=== PATIENT | female | born 1955 | race American Indian/Alaskan Native ===

== ENCOUNTER 2016-12-17 11:03 | Outpatient (CLI) | payer BC ==
--- NOTE | 2016-12-20 10:51 | Mammography Report ---
BILATERAL DIGITAL SCREENING MAMMOGRAM with CAD: 12/17/16 11:03:00 CLINICAL: Routine screening. COMPARISON:11/17/15 and 07/22/14 mammograms from [facility], [place], [place] and 09/13/11 [facility] mammogram. FINDINGS: There are bilateral scattered areas of fibroglandular density. No mass, architectural distortion or suspicious calcifications. IMPRESSION: No mammographic evidence of malignancy. BI-RADS CATEGORY: 2 -- Benign RECOMMENDATION: Routine mammographic screening in one year. COMMENT: Patient follow-up letters are generated by our [employer] application.
== END 2016-12-17 11:04 | disposition home or self-care (01) ==
LOC: MAMMO 11:03
PROVIDERS: ATTEND Surgery
DX: Z12.31 Encounter for screening mammogram for malignant neoplasm of breast (principal)
CPT/HCPCS: 77067; G0202

== ENCOUNTER 2016-12-21 07:51 | Outpatient (CLI) | payer BC ==
[2016-12-21] MEDS ORDERED: LEXISCAN IV ONE ×2 (08:48→10:00)
[2016-12-21 10:17] VITALS: BP 145/80
--- NOTE | 2016-12-21 11:21 | Procedure Note ---
Date of procedure: 12/21/16 Procedure: 1. Normal nuclear stress perfusion scan without evidence of active ischemia or prior infarct. 2. Normal left ventricular systolic performance without evidence of TID or stress-induced segmental wall motion abnormalities.
== END 2016-12-21 07:52 | disposition home or self-care (01) ==
LOC: CARD 07:51
PROVIDERS: ATTEND Internal Medicine
DX: R94.31 Abnormal electrocardiogram [ECG] [EKG] (principal)
CPT/HCPCS: 78452; 93017; A9502; J2785

== ENCOUNTER 2017-01-13 13:05 | Outpatient (CLI) | payer BC ==
[2017-01-13 13:27] LABS: Hematocrit 34.2 % (30.3-42.9); Hemoglobin 11.5 gm/dl (10.1-14.3); Mean Corpuscular HGB Conc 34 % (30-34); Mean Corpuscular Hemoglobin 29 pg (28-32); Mean Corpuscular Volume 85 fl (79-97); Platelet Count 256 K/mm3 (140-440); Red Blood Count 4.02 M/mm3 (3.65-5.03); Red Cell Distribution Width 14.3 % (13.2-15.2); White Blood Count 3.6 K/mm3 (4.5-11.0)
[2017-01-13 13:56] LABS: HIV-1 Antigen p24 Non React (Non React); HIVR-1/2 Ab Non React (Non React)
[2017-01-13 14:10] LABS: Anisocytosis 1+; Basophils % (Manual) 0 % (0.0-1.8); Blastocytes % (Manual) 0 %; Ovalocytes 2+; Poikilocytosis 1+
[2017-01-13 14:11] LABS: Diff Status Complete; Elliptocytes 1+; Helmet Cells Rare; Tear Drop Cells Rare
== END 2017-01-13 13:06 | disposition home or self-care (01) ==
LOC: LAB 13:05
PROVIDERS: ATTEND Internal Medicine
DX: D70.8 Other neutropenia (principal)
CPT/HCPCS: 36415; 82607; 82747; 85007; 85025; 87806

== ENCOUNTER 2017-04-08 11:16 | Outpatient (CLI) | payer BC ==
[2017-04-08 11:58] LABS: Alanine Aminotransferase 10 units/L (7-56); Albumin/Globulin Ratio 0.9 %; Alkaline Phosphatase 74 units/L (35-129); Anion Gap 15 mmol/L; BUN/Creatinine Ratio 17; Blood Urea Nitrogen 10 mg/dL (7-17); Calcium 8.7 mg/dL (8.4-10.2); Carbon Dioxide 29 mmol/L (22-30); Chloride 100.7 mmol/L (98-107); Cholesterol 176 mg/dL (50-199); Glucose 89 mg/dL (65-100); HDL Cholesterol 81 mg/dL (40-59); LDL Cholesterol,Direct 86 mg/dL (50-130); Potassium 3.7 mmol/L (3.6-5.0); Sodium 141 mmol/L (137-145); Total Protein 8.3 g/dL (6.3-8.2); Triglycerides 47 mg/dL (2-149)
[2017-04-11 22:23] LABS: Vitamin D, 25-OH, Total 11 ng/mL (30-100)
== END 2017-04-08 11:17 | disposition home or self-care (01) ==
LOC: LAB 11:16
PROVIDERS: ATTEND Internal Medicine
DX: E78.2 Mixed hyperlipidemia (principal); E05.90 Thyrotoxicosis, unspecified without thyrotoxic crisis or storm; E53.8 Deficiency of other specified B group vitamins; E55.9 Vitamin D deficiency, unspecified
CPT/HCPCS: 36415; 80053; 80061; 82306; 82607; 84436; 84443

== ENCOUNTER 2017-04-08 14:13 | Outpatient (CLI) | payer BC ==
--- NOTE | 2017-04-08 16:08 | Mammography Report ---
BONE DENSITY STUDY: Menopausal osteoporosis. DEFINITIONS: BMD = Bone Mineral Density T-score = BMD related to mean peak bone mass of young adult (mean expressed in Standard Deviation) Z-score = Age matched BMD expressed in SD World Health Organization (WHO) Diagnostic Criteria Normal T-score > -1 SD Osteopenia T-score between -1 and -2.4 SD Osteoporosis T-score -2.5 SD or below FINDINGS: The weighted average BMD of lumbar spine L1-L3 is 0.804 with a T-score of -1.9. The weighted average BMD of the left hip is 0.836 with a T-score of -0.9. IMPRESSION: The patient's average T-score is diagnostic for osteopenia and average relative risk for fracture. NOTE: BMD is not the only risk factor for fracture; also consider factors such as the patient's age, risk of falling, previous osteoporotic fracture, family history of osteoporotic fractures, current smoker, and low body weight. Quach's triangle is a region of interest in femur, predominantly of trabecular bone. It is not a true anatomic site, and ISCD does not recommend its use clinically.
== END 2017-04-08 14:14 | disposition home or self-care (01) ==
LOC: MAMMO 14:13
PROVIDERS: ATTEND Internal Medicine
DX: M85.88 Other specified disorders of bone density and structure, other site (principal); Z78.0 Asymptomatic menopausal state
CPT/HCPCS: 77080

== ENCOUNTER 2018-08-22 14:34 | Outpatient (CLI) | payer BC ==
[2018-08-22 15:05] LABS: Hemoglobin 11.2 gm/dl (10.1-14.3); Mean Corpuscular HGB Conc 35 % (30-34); Mean Corpuscular Volume 85 fl (79-97); Platelet Count 257 K/mm3 (140-440); Red Blood Count 3.76 M/mm3 (3.65-5.03); Red Cell Distribution Width 13.4 % (13.2-15.2)
[2018-08-22 15:08] LABS: Bilirubin,Urine NEG (Negative); Blood,Urine NEG (Negative); Color,Urine Amber (Yellow); Mucus,Urine 2+ /HPF
[2018-08-22 15:33] LABS: Alanine Aminotransferase 11 units/L (7-56); Albumin 3.9 g/dL (3.9-5); BUN/Creatinine Ratio 11; Blood Urea Nitrogen 8 mg/dL (7-17); Calcium 8.6 mg/dL (8.4-10.2); Hemolysis Index 4
[2018-08-29 12:50] LABS: ANA Screen, IFA Positive (Negative)
== END 2018-08-22 14:35 | disposition home or self-care (01) ==
LOC: LAB 14:34
PROVIDERS: ATTEND Internal Medicine Rheumatology
DX: M32.9 Systemic lupus erythematosus, unspecified (principal); M19.90 Unspecified osteoarthritis, unspecified site; Z90.710 Acquired absence of both cervix and uterus
CPT/HCPCS: 36415; 80053; 81001; 85027; 86038; 86225; 86235

== ENCOUNTER 2018-09-11 11:05 | Outpatient (CLI) | payer BC | END 2018-09-11 11:06 | disposition home or self-care (01) | LOC: LAB 11:05 | PROVIDERS: ATTEND Internal Medicine | DX: E87.6 Hypokalemia (principal); M19.90 Unspecified osteoarthritis, unspecified site; Z90.710 Acquired absence of both cervix and uterus | CPT/HCPCS: 36415; 82088; 84132 ==

== ENCOUNTER 2019-12-26 08:52 | Outpatient (CLI) | payer BC | END 2019-12-26 08:53 | disposition home or self-care (01) | LOC: LAB 08:52 | PROVIDERS: ATTEND Internal Medicine Rheumatology | DX: E78.2 Mixed hyperlipidemia (principal); M06.4 Inflammatory polyarthropathy | CPT/HCPCS: 36415; 84550; 86038; 86147; 86225; 86431 ==

== ENCOUNTER 2020-02-22 09:24 | Outpatient (CLI) | payer BC ==
[2020-02-22 13:48] LABS: Basophils % (Auto) 0.5 % (0.0-1.8); Eosinophils # (Auto) 0.2 K/mm3 (0.0-0.4); Eosinophils % (Auto) 3.5 % (0.0-4.3); Hematocrit 34.5 % (30.3-42.9); Hemoglobin 11.6 gm/dl (10.1-14.3); Lymphocytes # (Auto) 1.7 K/mm3 (1.2-5.4); Lymphocytes % (Auto) 36.8 % (13.4-35.0); Mean Corpuscular HGB Conc 34 % (30-34); Mean Corpuscular Volume 88 fl (79-97); Monocytes # (Auto) 0.4 K/mm3 (0.0-0.8); Monocytes % (Auto) 8.5 % (0.0-7.3); Platelet Count 245 K/mm3 (140-440); Red Blood Count 3.91 M/mm3 (3.65-5.03); Red Cell Distribution Width 13.6 % (13.2-15.2)
== END 2020-02-22 09:25 | disposition home or self-care (01) ==
LOC: LAB 09:24
PROVIDERS: ATTEND Internal Medicine Rheumatology
DX: D72.819 Decreased white blood cell count, unspecified (principal)
CPT/HCPCS: 36415; 85025

== ENCOUNTER 2020-08-29 09:26 | Outpatient (CLI) | payer BC ==
--- NOTE | 2020-08-29 11:33 | Ultrasound Report ---
ULTRASOUND BREAST RIGHT LIMITED, 08/29/2020 CLINICAL INFORMATION / INDICATION: ABNORMAL MAMMOGRAM. Patient presents for six-month follow-up of a probably benign oval circumscribed mass in the right breast. TECHNIQUE: Targeted ultrasound evaluation was performed of the area of interest. COMPARISON: Prior mammogram 12/20/2019 and right breast ultrasound 01/30/2020 FINDINGS: There is a stable superficial oval circumscribed hypoechoic mass in the right breast 11:00 position l ocated 1 cm from the nipple, currently measuring up to 2.8 x 0.7 x 2.6 cm, previously 2.8 x 0.5 x 2.5 cm. IMPRESSION: 1. A superficial oval circumscribed hypoechoic mass in the right breast is stable from prior examinat ion and remains probably benign. Recommend right breast ultrasound in 6 months to ensure ongoing stab ility, at which time patient will be due for bilateral mammogram. Follow up recommendation: Short term follow up in 6 months. BI-RADS Category 3: Probably Benign. Followup in 6 months. A normal or "negative" report should not preclude biopsy or follow-up of a clinically suspicious find ing. Signer Name: Jamaica Craig MD Signed: 08/29/2020 11:29 AM Workstation Name: [id number]
== END 2020-08-29 09:27 | disposition home or self-care (01) ==
LOC: US 09:26
PROVIDERS: ATTEND Surgery
DX: N63.11 Unspecified lump in the right breast, upper outer quadrant (principal); N60.32 Fibrosclerosis of left breast; N60.31 Fibrosclerosis of right breast

== ENCOUNTER 2020-09-02 11:35 | Outpatient (CLI) | payer BC ==
[2020-09-02 12:43] LABS: Alanine Aminotransferase 9 units/L (7-56); Albumin 3.9 g/dL (3.9-5); Blood Urea Nitrogen 13 mg/dL (7-17); Hemolysis Index 20
[2020-09-02 12:51] LABS: BUN/Creatinine Ratio 19
[2020-09-02 12:53] LABS: Eosinophils # (Auto) 0.1 K/mm3 (0.0-0.4); Eosinophils % (Auto) 2.5 % (0.0-4.3); Hematocrit 32.8 % (30.3-42.9); Lymphocytes # (Auto) 1.5 K/mm3 (1.2-5.4); Lymphocytes % (Auto) 38.1 % (13.4-35.0); Mean Corpuscular HGB Conc 34 % (30-34); Mean Corpuscular Volume 86 fl (79-97); Monocytes # (Auto) 0.3 K/mm3 (0.0-0.8); Monocytes % (Auto) 7.9 % (0.0-7.3); Platelet Count 224 K/mm3 (140-440); Red Blood Count 3.81 M/mm3 (3.65-5.03); Red Cell Distribution Width 13.8 % (13.2-15.2)
[2020-09-04 22:33] LABS: Cardiolipin Ab IgA 12 APL (<=11); Cardiolipin Ab IgG 46 GPL (<=14); Cardiolipin Ab IgM <12 MPL (<=12)
== END 2020-09-02 11:36 | disposition home or self-care (01) ==
LOC: LAB 11:35
PROVIDERS: ATTEND Internal Medicine
DX: M32.9 Systemic lupus erythematosus, unspecified (principal); E87.6 Hypokalemia
CPT/HCPCS: 36415; 80053; 82306; 82607; 85025; 86038; 86140; 86147; 86160; 86225

== ENCOUNTER 2020-09-25 09:11 | Outpatient (CLI) | payer BC ==
--- NOTE | 2020-09-25 11:18 | Treadmill Report ---
ORDERING PHYSICIAN: Dr. Avelino Barragan. The patient's for fatigue and dizziness. The patient's baseline EKG is sinus rhythm with nonspecific ST-T. Baseline blood pressure is 128/69. Baseline heart rate is 67. The patient exercised on Jarrod protocol for 9 minutes 45 seconds. Max heart rate is 169, which is 95% max predicted heart rate. Peak blood pressure is 169/82. There were no EKG changes or arrhythmia suggestive of ischemia, stopped secondary to shortness of breath. SUMMARY: 1. Negative treadmill EKG. 2. Good exercise capacity 9 minutes 45 seconds of Jarrod protocol. 3. There were no EKG changes or arrhythmia suggestive of ischemia with good or exaggerated blood pressure response to activity. JOB# [id number] DINH/VAN
== END 2020-09-25 09:12 | disposition home or self-care (01) ==
LOC: CARD 09:11
PROVIDERS: ATTEND Specialist
DX: R07.89 Other chest pain (principal)
CPT/HCPCS: 93017

== ENCOUNTER 2020-10-06 16:33 | Outpatient (CLI) | payer BC ==
--- NOTE | 2020-10-06 17:30 | Cat Scan Report ---
CT head/brain wo con INDICATION: DIZZINESS AND GIDDINESS. TECHNIQUE: Routine CT head. All CT scans at this location are performed using CT dose reduction for A TALAT by means of automated exposure control. COMPARISON: None. FINDINGS: Intracranial: Mayers-white matter differentiation is maintained. No intracranial hemorrhage. No extra a xial collection. No hydrocephalus. No herniation. Sinuses: Paranasal sinuses and mastoid air cells are essentially clear. Orbits: Globes are intact. Calvarium: Lucency of the clivus is seen. However, there is preservation of the trabeculation and zain s findings could be related to osseous demineralization. No cortical breakthrough is visualized. No a cute fracture. IMPRESSION: 1. No acute intracranial abnormality. Signer Name: Michael Mane MD Signed: 10/06/2020 5:26 PM Workstation Name: [id number]
== END 2020-10-06 16:34 | disposition home or self-care (01) ==
LOC: CT 16:33
PROVIDERS: ATTEND Internal Medicine
DX: R42 Dizziness and giddiness (principal)
CPT/HCPCS: 70450

== ENCOUNTER 2020-10-09 13:56 | Outpatient (CLI) | payer BC ==
--- NOTE | 2020-10-09 16:14 | Vascular Lab Report ---
DUPLEX DOPPLER ULTRASOUND CAROTID, BILATERAL INDICATION / CLINICAL INFORMATION: SUDDEN VISUAL LOSS, UNSPECIFIED EYE. Sudden visual loss in left ey e since 5 days ago, history of lupus. COMPARISON: None available. FINDINGS: RIGHT CAROTID: Minimal atherosclerotic disease in right bulb and proximal ICA. - PLAQUE ESTIMATE (%): < 50% - CCA velocity: 96 cm/sec. - ICA peak systolic velocity: 76 cm/sec. - ICA/CCA PSV Ratio: 0.8 Right Vertebral Artery: Antegrade flow. LEFT CAROTID: Minimal atherosclerotic disease in left bulb and proximal ICA. Tortuous ICA. - PLAQUE ESTIMATE (%): < 50% - CCA velocity: 84 cm/sec. - ICA peak systolic velocity: 105 cm/sec. - ICA/CCA PSV Ratio: 1.3 Left Vertebral Artery: Antegrade flow. IMPRESSION: 1. Right Internal Carotid Artery: Less than 50% diameter stenosis. 2. Left Internal Carotid Artery: Less than 50% diameter stenosis. 3. Minimal atherosclerotic disease bilateral, as above. Velocity criteria are extrapolated from diameter data as defined by the Society of Radiologists in [facility] Consensus Conference, Radiology 2003; 229;340-346. NO STENOSIS (NORMAL) - Plaque = none; ICA PSV < 125 cm/sec; ICA/CCA PSV Ratio < 2.0 <50% STENOSIS - Plaque < 50%; ICA PSV < 125 cm/sec; ICA/CCA PSV Ratio < 2.0 50-69% STENOSIS - Plaque > 50%; ICA PSV = 125-230 cm/sec; ICA/CCA PSV Ratio = 2.0-4.0 >70% BUT <100% STENOSIS - Plaque > 50%; ICA PSV > 230 cm/sec; ICA/CCA PSV Ratio > 4.0 NEAR OCCLUSION - Plaque = visible lumen; ICA PSV = high/low/none; ICA/CCA PSV Ratio = variable TOTAL OCCLUSION - Plaque = no lumen; ICA PSV = none; ICA/CCA PSV Ratio = N/A Scribed by: Sintia Bradley RDMS, RVT Scribed: 10/09/2020 2:07 PM Signer Name: Adam rPice MD Signed: 10/09/2020 4:09 PM Workstation Name: [email or web address] [id number]
== END 2020-10-09 13:57 | disposition home or self-care (01) ==
LOC: VAS 13:56
PROVIDERS: ATTEND Internal Medicine
DX: I65.23 Occlusion and stenosis of bilateral carotid arteries (principal); H53.139 Sudden visual loss, unspecified eye
CPT/HCPCS: 93880

== ENCOUNTER 2020-12-23 08:30 | Outpatient (CLI) | payer BC ==
--- NOTE | 2020-12-24 15:38 | Mammography Report ---
DIGITAL SCREENING MAMMOGRAM WITH CAD, 12/23/2020 CLINICAL INFORMATION / INDICATION: Routine screening mammography. -screening TECHNIQUE: Digital bilateral 2D mammography was obtained in the craniocaudal and mediolateral obliqu e projections. This examination was interpreted with the benefit of Computer-Aided Detection analysis . COMPARISON: 12/20/2019 FINDINGS: Breast Density: There are scattered areas of fibroglandular density. No dominant mass, suspicious calcifications, or architectural distortion in either breast. Old scar in the left breast. A few tiny scattered nodular densities are largely unchanged. Old biopsy clip on the left. IMPRESSION: No mammographic evidence of malignancy. Follow up recommendation: Routine yearly BI-RADS Category 2: Benign. A "normal" or negative report should not discourage follow up or biopsy of a clinically significant f inding. A written summary of these findings will be mailed to the patient. The patient will be entered into a mammography reporting system which will generate a reminder letter for the patient's next appointmen t at the appropriate interval. The [employer] recommends yearly mammograms starting at age 40 and continuing as l cristóbal as a woman is in good health. Breast MRI is recommended for women with an approximate 20-25% or greater lifetime risk of breast cancer, including women with a strong family history of breast or ova mayelin cancer or who have been treated for Hodgkin's disease. Signer Name: Red Sheppard MD Signed: 12/24/2020 3:33 PM Workstation Name: [id number]
== END 2020-12-23 08:31 | disposition home or self-care (01) ==
LOC: SPVWC 08:30
PROVIDERS: ATTEND Surgery
DX: Z12.31 Encounter for screening mammogram for malignant neoplasm of breast (principal)
CPT/HCPCS: 77063; 77067

== ENCOUNTER 2021-01-16 11:13 | Observation (INO) | payer BC ==
--- NOTE | 2021-01-16 11:55 | Event Note ---
ED Screening Note ED Screening Note: Patient presents for dizziness that occurred just prior to arrival She had associated nausea She states that she was having vision changes in her left eye and right arm weakness which have improved Patient states that the symptoms have been ongoing for 3 months but acutely worsened today she states her symptoms lasted longer than the previously have in the past She reports that she had recent carotid Dopplers bilaterally and states that her doctor believes she may be having TIAs Patient was scheduled for an MRI and MRA today but due to her symptoms she was unable to make it to her scan Discussed case with Dr. Thakur, ER attending who advised to initiate code stroke protocol This initial assessment/diagnostic orders/clinical plan/treatment(s) is/are subject to change based on patients health status, clinical progression and re- assessment by fellow clinical providers in the ED. Further treatment and workup at subsequent clinical providers discretion. Patient/guardian urged not to elope from the ED as their condition may be serious if not clinically assessed and managed. Initial orders include: code stroke initiated
--- NOTE | 2021-01-16 12:09 | Consultation ---
History of Present Illness Consult date: 01/16/21 Medications and Allergies Allergies Allergy/AdvReac Type Severity Reaction Status Date / Time Sulfa (Sulfonamide Allergy Rash Verified 03/10/13 13:46 Antibiotics) Home Medications Medication Instructions Recorded Confirmed Last Taken Type Ondansetron [Zofran] 4 mg PO Q8HR PRN #10 tablet 03/10/13 Unknown Rx Oxycodone HCl/Acetaminophen 1 each PO Q6HR PRN #30 tablet 03/10/13 Unknown Rx [Percocet 10-325 mg] Physical Examination - Vital Signs Vital Signs: Vital Signs Temp Pulse Resp BP Pulse Ox 98.2 F 68 18 146/77 100 01/16/21 11:55 01/16/21 11:55 01/16/21 11:55 01/16/21 11:55 01/16/21 11:55 Assessment and Plan [facility] Consult Note # Demographics Consult Type: Acute Stroke Level 1 (0-4.5 hrs) Patient Location: Emergency Room First Name: Lora Last Name: Vincent Date of : 1955 Age: 65 Gender: Female Time of Initial Page ( Time): 01/16/2021, 11:55 Time of Return Call ( Time): 01/16/2021, 11:57 # HPI History: 65F reportedly with episodes similar to this for months. Left eye vision loss and right side sensory change are the symptoms. Also nausea. Usually passes with time, but this episode longer duration, nearly back to normal now. Found to be hypoglycemic. # Scores Time of exam and NIHSS (): 01/16/2021, 12:00 Motor Leg Left 6a: [1] = Drift NIHSS Total: 1 # Data Glucose: hypoglycemia [address] personally read by me ( Time): 01/16/2021, 11:[address]: no bleed preliminarily reviewed by me, please refer to radiology read for official reading # Assessment Impression: Ischemic Stroke (Acute) versus mimic, including symptomatic hypoglycemia, complex migraine, other. Given that the patient has had many similar events with spontaneous resolution, and symptoms are minor, risk > benefit for IV tPA with available data as best I can estimate. # Plan Thrombolytic/Intervention: NOT IV Thrombolysis or IA Intervention candidate Thrombolytic Exclusion: risk > benefit with available data. Intraarterial Exclusion: pending CTA head/neck Target Blood Pressure: SBP < 220 Imaging: (urgency: STAT): CT Angiogram Head and CT Angiogram Neck Imaging: (urgency: routine): MRI Brain without contrast Diagnostic Test: echo with bubble study Medication: aspirin 81 mg PLUS clopidogrel (Plavix) 75 mg for 21 days, then monotherapy therafter start statin with goal of LDL < 70 Other: LDL < 70 permissive hypertension telemetry monitoring I have discussed my recommendations with the referring provider Additional Recommendations: Correction of hypoglycemia. Evaluation for etiology of hypoglycemia. Further recommendations depending on result of pending imaging. Disposition: admit # Logistics Telemedicine: Interactive 2 way audio and visual telecommunication technology was utilized during this visit
--- NOTE | 2021-01-16 12:52 | Cat Scan Report ---
CT HEAD WITHOUT CONTRAST INDICATION / CLINICAL INFORMATION: Stroke symptoms. TECHNIQUE: All CT scans at this location are performed using CT dose reduction for ALARA by means of automated exposure control. COMPARISON: CT from 10/06/2020. FINDINGS: BRAIN PARENCHYMA: No acute intracranial hemorrhage. No evidence of recent infarct. No mass effect or midline shift. VENTRICULAR SYSTEM/EXTRA-AXIAL SPACES: Ventricles are normal for age. No extra-axial fluid collection . ORBITS: Normal as visualized. SKELETAL SYSTEM/SOFT TISSUES: Normal bones and soft tissues. PARANASAL SINUSES/MASTOID AIR CELLS: There is stable lucency within the clivus. No new or increasing cortical destruction. This could be related to demineralization. No acute osseous findings. ADDITIONAL FINDINGS: None. IMPRESSION: 1. No acute intracranial findings. 2. Stable lucency within the clivus without new or increasing cortical destruction. Findings are favo red to be related to demineralization. Information regarding the critical finding(s) was communicated to Dr. Mcguire by Dr. Gumaro Plaza MD, via telephone on 01/16/2021 11:27 AM. Signer Name: Gumaro Plaza MD Signed: 01/16/2021 12:47 PM Workstation Name: [id number]
--- NOTE | 2021-01-16 12:55 | Cat Scan Report ---
CT ANGIO HEAD INDICATION / CLINICAL INFORMATION: 65 years Female; CODE STROKE CALL ER MAIN AT [address] 350 100 ML. TECHNIQUE: Thin cut axial images obtained through the head during IV bolus contrast administration. S agittal, coronal, and 3 plane MIP reconstructions performed by the technologist. NASCET type criteria used evaluate stenoses. Automated exposure control utilized for radiation reduction purposes. COMPARISON: None available. FINDINGS: INTERNAL CAROTID ARTERIES: No significant narrowing appreciated. VERTEBROBASILAR SYSTEM: No significant narrowing appreciated. DISTAL BRANCHES: Distal branches of the anterior, middle, and posterior cerebral arteries are fairly symmetric in appearance and number. ANEURYSM: None identified. ADDITIONAL FINDINGS: Low density area seen in the clivus, extending towards the occipital condyle reg ions. Similar appearance seen on prior CT from 10/06/2020. Increased density seen in the condylar neck of the mandible on the right. IMPRESSION: No significant abnormality on this CTA of the head. Signer Name: Zia Roberts MD, III Signed: 01/16/2021 12:50 PM Workstation Name: [id number]
[2021-01-16 13:15] LABS: Basophils % (Auto) 0.6 % (0.0-1.8); Eosinophils # (Auto) 0.1 K/mm3 (0.0-0.4); Eosinophils % (Auto) 2.6 % (0.0-4.3); Hemoglobin 10.6 gm/dl (10.1-14.3); Lymphocytes # (Auto) 1.1 K/mm3 (1.2-5.4); Lymphocytes % (Auto) 28.2 % (13.4-35.0); Mean Corpuscular HGB Conc 34 % (30-34); Mean Corpuscular Volume 85 fl (79-97); Monocytes # (Auto) 0.4 K/mm3 (0.0-0.8); Platelet Count 120 K/mm3 (140-440); Red Blood Count 3.64 M/mm3 (3.65-5.03); Red Cell Distribution Width 14.3 % (13.2-15.2)
--- NOTE | 2021-01-16 13:30 | Emergency Department Report ---
ED Neuro Deficit HPI - General Chief Complaint: Neuro Symptoms/Deficit Source: patient Mode of arrival: Wheelchair Limitations: No Limitations - History of Present Illness Initial Comments: Chief complaint: Dizziness patient loss left hand weakness left leg weakness HPI: This is a 65-year-old female with history of SLE, anemia, osteoarthritis, fibromyalgia who presents with 3 months of left eye vision loss, right hand weakness and vertigo with nausea. Patient referred to neurologist. Outpatient ultrasound study performed. Today MRI scheduled. Symptoms worsened on today. She had recurrent vertigo sensation as well as left eye vision loss for several minutes. She had right arm weakness. Her nurse colleague noticed that she was slow to respond for several minutes. On exam she realized that she had left leg weakness. She does not know when the left leg weakness occurred. Patient has had repeated episodes over the past 3 months. Today's episode was longer than previous episodes. Neurologist Dr. Lomeli recommended beginning aspirin therapy after MRI was completed. Medications Plaquenil Potassium Meloxicam -: Gradual (Gradual onset 3 months ago), Sudden (Sudden episode today) Location: speech, other (Left arm vision loss, right hand weakness, left leg weakness) History of same: Yes Place: work Severity: moderate Improves With: time Worsens With: none On Anticoagulants: No Context: sudden onset Associated Symptoms: other (Nausea) - Related Data Home Medications: Previous Rx's Medication Instructions Recorded Last Taken Type Ondansetron [Zofran] 4 mg PO Q8HR PRN #10 tablet 03/10/13 Unknown Rx Oxycodone HCl/Acetaminophen 1 each PO Q6HR PRN #30 tablet 03/10/13 Unknown Rx [Percocet 10-325 mg] Allergies/Adverse Reactions: Allergies Allergy/AdvReac Type Severity Reaction Status Date / Time Sulfa (Sulfonamide Allergy Rash Verified 03/10/13 13:46 Antibiotics) ED Review of Systems ROS: Stated complaint: Other details as noted in HPI Comment: All other systems reviewed and negative Constitutional: denies: fever ENT: denies: throat pain Respiratory: denies: cough, shortness of breath Cardiovascular: denies: chest pain Gastrointestinal: denies: abdominal pain, nausea, vomiting Neurological: weakness, confusion, vertigo ED Past Medical Hx - Past Medical History Previous Medical History?: Yes Hx Arthritis: Yes Additional medical history: anemia, Lupus, Osteoarthritis, fibromyalgia - Surgical History Past Surgical History?: Yes Additional Surgical History: right rotater cuff, hyst, d/c - Family History Family history: diabetes, vascular disease, other (Cardiac disease) - Social History Smoking Status: Never Smoker Substance Use Type: None - Medications Home Medications: Home Medications Medication Instructions Recorded Confirmed Last Taken Type Ondansetron [Zofran] 4 mg PO Q8HR PRN #10 tablet 03/10/13 Unknown Rx Oxycodone HCl/Acetaminophen 1 each PO Q6HR PRN #30 tablet 03/10/13 Unknown Rx [Percocet 10-325 mg] ED Neuro Physical Exam - General Limitations: No Limitations General appearance: alert, in no apparent distress Suspected Stroke: Yes - Head Head exam: Present: atraumatic, normocephalic - Eye Eye exam: Present: normal appearance - ENT ENT exam: Present: mucous membranes moist - Neck Neck exam: Present: normal inspection, full ROM - Respiratory Respiratory exam: Present: normal lung sounds bilaterally. Absent: respiratory distress, wheezes, rales, rhonchi, stridor - Cardiovascular Cardiovascular Exam: Present: regular rate, normal rhythm, normal heart sounds. Absent: systolic murmur, diastolic murmur, rubs, gallop - GI/Abdominal GI/Abdominal exam: Present: soft, normal bowel sounds. Absent: distended, tenderness, guarding - Extremities Exam Extremities exam: Present: normal inspection - Neurological Exam Neurological exam: Present: alert, oriented X3 - NIHSS Assessment Interval: Baseline 1a. Level of Consciousness: alert/keenly responsive 1b. LOC Questions: answers both correctly 1c. LOC Commands: performs tasks correctly 2. Best Gaze: forced deviation 3. Visual: no visual loss 4. Facial Palsy: normal symmetrical movement 5b. Motor Arm Right: no drift 5a. Motor Arm Left: no drift 6a. Motor Leg Left: drift 6b. Motor Leg Right: no drift 7. Limb Ataxia: absent 8. Sensory: normal 9. Best Language: no aphasia 10. Dysarthria: normal 11. Extinction/Inattention: no abnormality Total Score: 3 Stroke Severity: Minor Stroke - Psychiatric Psychiatric exam: Present: normal affect, normal mood - Skin Skin exam: Present: warm, dry, intact, normal color. Absent: rash ED Course Vital Signs 01/16/21 01/16/21 01/16/21 11:55 12:28 12:31 Temperature 98.2 F Pulse Rate 68 78 Respiratory 18 19 Rate Blood Pressure Blood Pressure 146/77 [Right] O2 Sat by Pulse 100 88 93 Oximetry 01/16/21 01/16/21 12:33 12:41 Temperature Pulse Rate 81 Respiratory 16 17 Rate Blood Pressure 123/98 Blood Pressure [Right] O2 Sat by Pulse 98 100 Oximetry - Lab Data Result diagrams: 01/16/21 12:43 01/16/21 12:43 Lab Results 01/16/21 01/16/21 01/16/21 Range/Units 12:40 12:43 12:43 WBC 3.8 L (4.5-11.0) K/mm3 RBC 3.64 L (3.65-5.03) M/mm3 Hgb 10.6 (10.1-14.3) gm/dl Hct 31.0 (30.3-42.9) % MCV 85 (79-97) fl MCH 29 (28-32) pg MCHC 34 (30-34) % RDW 14.3 (13.2-15.2) % Plt Count 120 L (140-440) K/mm3 Lymph % (Auto) 28.2 (13.4-35.0) % Harney % (Auto) 11.0 H (0.0-7.3) % Eos % (Auto) 2.6 (0.0-4.3) % Baso % (Auto) 0.6 (0.0-1.8) % Lymph # (Auto) 1.1 L (1.2-5.4) K/mm3 Harney # (Auto) 0.4 (0.0-0.8) K/mm3 Eos # (Auto) 0.1 (0.0-0.4) K/mm3 Baso # (Auto) 0.0 (0.0-0.1) K/mm3 Seg Neutrophils % 57.6 (40.0-70.0) % Seg Neutrophils # 2.2 (1.8-7.7) K/mm3 PT 14.7 (12.2-14.9) Sec. INR 1.10 (0.87-1.13) APTT 49.0 H (24.2-36.6) Sec. Thrombin Time 18.8 (15.1-19.6) Sec. Sodium (137-145) mmol/L Potassium (3.6-5.0) mmol/L Chloride (98-107) mmol/L Carbon Dioxide (22-30) mmol/L Anion Gap mmol/L BUN (7-17) mg/dL Creatinine (0.6-1.2) mg/dL Estimated GFR ml/min BUN/Creatinine Ratio % Glucose (65-100) mg/dL POC Glucose 61 L (70-105) mg/dL Calcium (8.4-10.2) mg/dL Total Bilirubin (0.1-1.2) mg/dL AST (5-40) units/L ALT (7-56) units/L Alkaline Phosphatase (35-129) units/L Total Creatine Kinase (30-135) units/L CK-MB (CK-2) (0.0-4.0) ng/mL CK-MB (CK-2) Rel Index (0-4) Troponin T (0.00-0.029) ng/mL Total Protein (6.3-8.2) g/dL Albumin (3.9-5) g/dL Albumin/Globulin Ratio % // Range/Units 12:43 WBC (4.5-11.0) K/mm3 RBC (3.65-5.03) M/mm3 Hgb (10.1-14.3) gm/dl Hct (30.3-42.9) % MCV (79-97) fl MCH (28-32) pg MCHC (30-34) % RDW (13.2-15.2) % Plt Count (140-440) K/mm3 Lymph % (Auto) (13.4-35.0) % Harney % (Auto) (0.0-7.3) % Eos % (Auto) (0.0-4.3) % Baso % (Auto) (0.0-1.8) % Lymph # (Auto) (1.2-5.4) K/mm3 Harney # (Auto) (0.0-0.8) K/mm3 Eos # (Auto) (0.0-0.4) K/mm3 Baso # (Auto) (0.0-0.1) K/mm3 Seg Neutrophils % (40.0-70.0) % Seg Neutrophils # (1.8-7.7) K/mm3 PT (12.2-14.9) Sec. INR (0.87-1.13) APTT (24.2-36.6) Sec. Thrombin Time (15.1-19.6) Sec. Sodium 138 (137-145) mmol/L Potassium 3.6 (3.6-5.0) mmol/L Chloride 100.7 (98-107) mmol/L Carbon Dioxide 28 (22-30) mmol/L Anion Gap 13 mmol/L BUN 14 (7-17) mg/dL Creatinine 0.8 (0.6-1.2) mg/dL Estimated GFR > 60 ml/min BUN/Creatinine Ratio 18 % Glucose 78 (65-100) mg/dL POC Glucose (70-105) mg/dL Calcium 9.0 (8.4-10.2) mg/dL Total Bilirubin 0.50 (0.1-1.2) mg/dL AST 21 (5-40) units/L ALT 9 (7-56) units/L Alkaline Phosphatase 62 (35-129) units/L Total Creatine Kinase 142 H (30-135) units/L CK-MB (CK-2) 2.4 (0.0-4.0) ng/mL CK-MB (CK-2) Rel Index 1.6 (0-4) Troponin T < 0.010 (0.00-0.029) ng/mL Total Protein 8.2 (6.3-8.2) g/dL Albumin 3.9 (3.9-5) g/dL Albumin/Globulin Ratio 0.9 % - Radiology Data Radiology results: report reviewed Patient Name: ERIC MIRELES Gender: Female Date of : 1955 Referring Provider: STACI MAX Organization: [facility] Accession Number: [id number] Requested Date: January 16, 2021 12:09 Report Status: Final Requested Procedure: 1 Procedure Description: CT angio head Modality: CT Findings Reporting MD: Zia Roberts Dictation Time: January 16, 2021 11:50 Conductor Yard: Not available Rn Pain Management Date: CT ANGIO HEAD INDICATION / CLINICAL INFORMATION: 65 years Female; CODE STROKE CALL ER MAIN AT 8199 [address] 350 100 ML. TECHNIQUE: Thin cut axial images obtained through the head during IV bolus contrast administration. Sagittal, coronal, and 3 plane MIP reconstructions performed by the technologist. NASCET type criteria used evaluate stenoses. Automated exposure control utilized for radiation reduction purposes. COMPARISON: None available. FINDINGS: INTERNAL CAROTID ARTERIES: No significant narrowing appreciated. VERTEBROBASILAR SYSTEM: No significant narrowing appreciated. DISTAL BRANCHES: Distal branches of the anterior, middle, and posterior cerebral arteries are fairly symmetric in appearance and number. ANEURYSM: None identified. ADDITIONAL FINDINGS: Low density area seen in the clivus, extending towards the occipital condyle regions. Similar appearance seen on prior CT from 10/06/2020. Increased density seen in the condylar neck of the mandible on the right. IMPRESSION: No significant abnormality on this CTA of the head. Signer Name: Zia Roberts MD, III Signed: 01/16/2021 11:50 AM Workstation Name: [id number] Patient Name: ERIC MIRELES Gender: Female Date of : 1955 Referring Provider: STACI MAX Organization: [facility] Accession Number: [id number] Requested Date: January 16, 2021 12:09 Report Status: Final Requested Procedure: 1 Procedure Description: CT angio neck Modality: CT Findings Reporting MD: Gerhard Mcdaniel Dictation Time: January 16, 2021 12:25 Conductor Yard: Not available Rn Pain Management Date: CTA NECK WITH CONTRAST 01/16/2021 INDICATION / CLINICAL INFORMATION: stroke symptoms vision loss left arm weakness . COMPARISON: None. TECHNIQUE: Routine CTA of the neck is performed. 3-D/MIP reformats were postprocessed. Percentage stenosis is determined by direct quantitative measurements of diseased internal carotid artery diameter compared with normal distal internal carotid artery reference segments or by criteria similar to NASCET where applicable. All CT scans at this location are performed using CT dose reduction for ALARA by means of automated exposure control. CONTRAST: 100 ml of Omnipaque 350 FINDINGS: Carotid bifurcations: There is no evidence of carotid bifurcation stenosis. Carotid arteries: No significant abnormality. Cervical vertebral arteries: No significant abnormality. Aortic arch: No significant abnormality. Incidental note is made of esophageal dilatation in the lower neck and visualized portions of the upper and middle mediastinum. IMPRESSION: No significant vascular abnormality.. Esophageal dilatation of uncertain etiology. Signer Name: Gerhard Mcdaniel MD Signed: 01/16/2021 12:25 PM Workstation Name: [id number] Patient Name: ERIC MIRELES Gender: Female Date of : 1955 Referring Provider: FRIEDA HARRIS Organization: [facility] Accession Number: [id number] Requested Date: January 16, 2021 11:53 Report Status: Final Requested Procedure: 1 Procedure Description: CT head/brain wo con Modality: CT Findings Reporting MD: Gumaro Plaza Dictation Time: January 16, 2021 11:47 Conductor Yard: Not available Rn Pain Management Date: CT HEAD WITHOUT CONTRAST INDICATION / CLINICAL INFORMATION: Stroke symptoms. TECHNIQUE: All CT scans at this location are performed using CT dose reduction for ALARA by means of automated exposure control. COMPARISON: CT from 10/06/2020. FINDINGS: BRAIN PARENCHYMA: No acute intracranial hemorrhage. No evidence of recent infarct. No mass effect or midline shift. VENTRICULAR SYSTEM/EXTRA-AXIAL SPACES: Ventricles are normal for age. No extra- axial fluid collection. ORBITS: Normal as visualized. SKELETAL SYSTEM/SOFT TISSUES: Normal bones and soft tissues. PARANASAL SINUSES/MASTOID AIR CELLS: There is stable lucency within the clivus. No new or increasing cortical destruction. This could be related to demineralization. No acute osseous findings. ADDITIONAL FINDINGS: None. IMPRESSION: 1. No acute intracranial findings. 2. Stable lucency within the clivus without new or increasing cortical destruction. Findings are favored to be related to demineralization. Information regarding the critical finding(s) was communicated to Dr. Max by Dr. Gumaro Plaza MD, via telephone on 01/16/2021 11:27 AM. Signer Name: Gumaro Plaza MD Signed: 01/16/2021 11:47 AM Workstation Name: [id number] - Medical Decision Making Recurrent TIA over the last 3 months. Patient has NIH stroke scale 1 for persistent left leg weakness. Other symptoms of vision loss vertigo right hand weakness have resolved. TPA is not indicated due to rapidly resolving symptoms and low NIH stroke score. Patient given aspirin. Patient is admitted to the hospital service. Teleneurologist provided recommendations including MRI dual platelet therapy echocardiogram. CBC chemistry within normal limits. Troponin within normal limits. PTT slightly elevated today to lab error. Critical care attestation.: If time is entered above; I have spent that time in minutes in the direct care of this critically ill patient, excluding procedure time. ED Disposition Clinical Impression: TIA (transient ischemic attack) Disposition: [id number] OP ADMIT IP TO THIS HOSP Is pt being admited?: Yes Does the pt Need Aspirin: Yes Condition: Stable
--- NOTE | 2021-01-16 13:32 | Cat Scan Report ---
CTA NECK WITH CONTRAST 01/16/2021 INDICATION / CLINICAL INFORMATION: stroke symptoms vision loss left arm weakness . COMPARISON: None. TECHNIQUE: Routine CTA of the neck is performed. 3-D/MIP reformats were postprocessed. Percentage st enosis is determined by direct quantitative measurements of diseased internal carotid artery diameter compared with normal distal internal carotid artery reference segments or by criteria similar to MARIKA CET where applicable. All CT scans at this location are performed using CT dose reduction for ALARA b y means of automated exposure control. CONTRAST: 100 ml of Omnipaque 350 FINDINGS: Carotid bifurcations: There is no evidence of carotid bifurcation stenosis. Carotid arteries: No significant abnormality. Cervical vertebral arteries: No significant abnormality. Aortic arch: No significant abnormality. Incidental note is made of esophageal dilatation in the lower neck and visualized portions of the upp er and middle mediastinum. IMPRESSION: No significant vascular abnormality.. Esophageal dilatation of uncertain etiology. Signer Name: Gerhard Mcdaniel MD Signed: 01/16/2021 1:25 PM Workstation Name: [id number]
[2021-01-16 13:33] LABS: Creatine Kinase MB 2.4 ng/mL (0.0-4.0)
[2021-01-16 13:34] LABS: Alanine Aminotransferase 9 units/L (7-56); Albumin 3.9 g/dL (3.9-5); BUN/Creatinine Ratio 18; Blood Urea Nitrogen 14 mg/dL (7-17); Hemolysis Index 3
[2021-01-16 13:48] LABS: INR 1.1 (0.87-1.13)
[2021-01-16 13:49] LABS: Thrombin Time 18.8 Sec. (15.1-19.6)
[2021-01-16] MEDS ORDERED: ASPIRIN 81 MG TAB CHEW PO ONE (14:12)
[2021-01-16] MEDS ORDERED: HYDROmorphone 1 MG/1 ML INJ IV PRN (14:43)
[2021-01-16] MEDS ORDERED: MAGNESIUM HYDROXIDE (MOM) ORAL LIQD UDC PO PRN (14:43)
[2021-01-16] MEDS ORDERED: PROMETHAZINE 25 MG RECT SUPP PR PRN (14:43)
[2021-01-16] MEDS ORDERED: oxyCODONE /ACETAMINOPHEN 5-325MG TAB PO PRN (14:43)
[2021-01-16] MEDS ORDERED: METOCLOPRAMIDE 10 MG TAB PO PRN (14:43)
[2021-01-16] MEDS ORDERED: ONDANSETRON 4 MG/2 ML INJ IV PRN (14:43)
[2021-01-16] MEDS ORDERED: ACETAMINOPHEN 325 MG TAB PO PRN (14:43)
--- NOTE | 2021-01-16 16:59 | History and Physical Report ---
History of Present Illness Date of admission: 01/16/21 14:43 Chief complaint: I feel dizzy and I feel weak History of present illness: 65 YO Female with SLE, Anemia of Chronic Disease, OA, Fibromyalgia presents to ED for evaluation. Pt reports "I feel dizzy, and I am weak". Patient states t hat she had experienced right-sided weakness, dizziness over the past 3 months with increasing recurrent symptoms over the past 3 days. Patient was seen and evaluated by her neurologist yesterday and was instructed to seek further care at [facility]. Patient transported to [facility] via private vehicle for further care and evaluation of the aforementioned symptoms. The patient was seen and evaluated in the emergency department. All lab and imaging studies reviewed. The patient was found to have a neurologic deficit and a code stroke was called. Patient found to have clinical symptoms consistent with CVA. Patient placed in observation status and admitted to telemetry. Patient denies fever, chills, chest pain, palpitation, productive cough, skin rash, recent ill contacts, known exposure to COVID-19. Teleneurology consulted in ED. Neurology team consulted as well. No prior admission for review. All medication listed at time of admission has been reconciled. Advanced care planning conducted in ED. Past History Past Medical History: anemia, arthritis, other (See HPI) Past Surgical History: hysterectomy, Other (Rotator cuff surgery, dilatation and curettage) Social history: , lives with family. denies: smoking, alcohol abuse Family history: hypertension, other (Peripheral vascular disease) Medications and Allergies Allergies Allergy/AdvReac Type Severity Reaction Status Date / Time Sulfa (Sulfonamide Allergy Rash Verified 03/10/13 13:46 Antibiotics) Home Medications Medication Instructions Recorded Confirmed Last Taken Type Hydroxychloroquine [Plaquenil] 200 mg PO BID 01/16/21 01/16/21 Unknown History Meloxicam [Mobic] 15 mg PO QDAY 01/16/21 01/16/21 Unknown History Potassium Chloride [Klor-Con] 20 meq PO QDAY 01/16/21 01/16/21 Unknown History Active Meds: Active Medications Acetaminophen (Acetaminophen 325 Mg Tab) 650 mg PO Q4H PRN PRN Reason: Pain, Mild (1-3) Aspirin (Aspirin 325 Mg Tab) 325 mg PO QDAY ANGELICA Atorvastatin Calcium (Atorvastatin 40 Mg Tab) 40 mg PO QHS ANGELICA Bisacodyl (Bisacodyl 10 Mg Rect Supp) 10 mg TX QDAY PRN PRN Reason: Constipation Hydromorphone HCl (Hydromorphone 1 Mg/1 Ml Inj) 0.5 mg IV Q12H PRN PRN Reason: Pain , Severe (7-10) Magnesium Hydroxide (Magnesium Hydroxide (Mom) Oral Liqd Udc) 30 ml PO Q4H PRN PRN Reason: Constipation Metoclopramide HCl (Metoclopramide 10 Mg Tab) 10 mg PO Q6H PRN PRN Reason: Nausea And Vomiting Ondansetron HCl (Ondansetron 4 Mg/2 Ml Inj) 4 mg IV Q8H PRN PRN Reason: Nausea And Vomiting Oxycodone/Acetaminophen (Oxycodone /Acetaminophen 5-325mg Tab) 1 tab PO Q12H PRN PRN Reason: Pain, Moderate (4-6) Promethazine HCl (Promethazine 25 Mg Rect Supp) 25 mg TX Q6H PRN PRN Reason: Nausea And Vomiting Sodium Chloride (Sodium Chloride 0.9% 10 Ml Flush Syringe) 10 ml IV PRN PRN PRN Reason: LINE FLUSH Review of Systems Constitutional: no weight loss, no weight gain, no fever, no chills Ears, nose, mouth and throat: vertigo, no ear pain, no ear discharge, no decreased hearing, no nose pain, no nasal congestion Breasts: no change in shape, no swelling, no mass Cardiovascular: no chest pain, no rapid/irregular heart beat, no edema Respiratory: no cough, no cough with sputum, no hemoptysis, no shortness of breath Gastrointestinal: no abdominal pain, no nausea, no diarrhea, no constipation Genitourinary Female: no pelvic pain, no menorrhagia, no dysuria, no urinary frequency, no urgency Rectal: no pain, no incontinence, no bleeding Musculoskeletal: no neck stiffness, no shooting arm pain, no low back pain Integumentary: no rash, no pruritis, no sores, no jaundice Neurological: weakness, vertigo, gait dysfunction, loss of vision, no head injury, no paralysis, no numbness, no tingling, no seizures Psychiatric: no anxiety, no memory loss, no change in sleep habits, no insomnia, no change in appetite, no change in libido, no suicidal ideation Endocrine: no cold intolerance, no polyphagia, no excessive thirst, no polyuria Hematologic/Lymphatic: no easy bruising, no easy bleeding Allergic/Immunologic: no urticaria, no allergic rhinitis, no wheezing Exam - Constitutional Vitals: Temp Pulse Resp BP Pulse Ox 98.2 F 79 13 124/88 100 01/16/21 11:55 01/16/21 15:41 01/16/21 15:41 01/16/21 15:41 01/16/21 15:31 General appearance: Present: mild distress - EENT Eyes: Present: PERRL ENT: hearing intact, clear oral mucosa - Neck Neck: Present: supple, normal ROM - Respiratory Respiratory effort: normal Respiratory: bilateral: CTA - Cardiovascular Heart Sounds: Present: S1 & S2. Absent: rub, click - Extremities Extremities: pulses symmetrical, No edema Peripheral Pulses: within normal limits - Abdominal General gastrointestinal: Present: soft, non-tender, non-distended, normal bowel sounds Female genitourinary: Present: normal - Integumentary Integumentary: Present: clear, warm, dry - Musculoskeletal Musculoskeletal: left sided weakness - Psychiatric Psychiatric: appropriate mood/affect, intact judgment & insight - Neurologic Neurologic: CNII-XII intact, moves all extremities HEART Score - HEART Score Troponin: Troponin T < 0.010 ng/mL (0.00-0.029) 01/16/21 12:43 Results - Labs CBC & Chem 7: 01/16/21 12:43 01/16/21 12:43 Labs: Abnormal lab results 01/16/21 01/16/21 01/16/21 Range/Units 12:40 12:43 12:43 WBC 3.8 L (4.5-11.0) K/mm3 RBC 3.64 L (3.65-5.03) M/mm3 Plt Count 120 L (140-440) K/mm3 Hyde % (Auto) 11.0 H (0.0-7.3) % Lymph # (Auto) 1.1 L (1.2-5.4) K/mm3 APTT 49.0 H (24.2-36.6) Sec. POC Glucose 61 L (70-105) mg/dL Total Creatine Kinase (30-135) units/L 01/16/21 Range/Units 12:43 WBC (4.5-11.0) K/mm3 RBC (3.65-5.03) M/mm3 Plt Count (140-440) K/mm3 Hyde % (Auto) (0.0-7.3) % Lymph # (Auto) (1.2-5.4) K/mm3 APTT (24.2-36.6) Sec. POC Glucose (70-105) mg/dL Total Creatine Kinase 142 H (30-135) units/L Assessment and Plan - Patient Problems (1) CVA (cerebral vascular accident) Current Visit: Yes Status: Acute Plan to address problem: CVA protocol: CT head, neuro check, seizure precautions, aspiration precautions, fall precautions, carotid Doppler reviewed, echocardiogram, dual antiplatelet therapy, lipid panel, statin therapy, telemetry neurology consulted, neurology team consulted, physical therapy consulted, Occupational Therapy consulted, speech therapy consulted, further testing as per neurology team recommendations. (2) Lupus Current Visit: Yes Status: Acute Plan to address problem: Continue current therapy, outpatient rheumatology follow-up. (3) Fibromyalgia Current Visit: Yes Status: Acute Plan to address problem: Continue prehospital medication, supportive care, outpatient rheumatology follow-up. (4) DVT prophylaxis Current Visit: Yes Status: Acute Plan to address problem: SCD to bilateral lower extremities while in bed, patient is ambulatory (5) Advance care planning Current Visit: Yes Status: Acute Plan to address problem: Disease education conducted, care plan discussed, diagnoses discussed, prognosis discussed, patient knowledges understanding and agreement with care plan, +30 minutes.
--- NOTE | 2021-01-17 09:19 | Consultation ---
History of Present Illness Consult date: 01/17/21 Reason for Consult: Weakness History of present illness: I feel dizzy and I feel weak History of present illness: 65 YO Female with SLE, Anemia of Chronic Disease, OA, Fibromyalgia presents to ED for evaluation. Pt reports "I feel dizzy, and I am weak". Patient states that she had experienced right-sided weakness intermittently associated with left visual blured vision average Q 3 weeks and symptoms last only feww seconds dizziness over the past 3 months with increasing recurrent symptoms over the past 3 days. Patient was seen and evaluated by her neurologist yesterday and was instructed to seek further care at [facility] and she was started on ASA 325 mg and Plavix 75 mg and lipitor 40 mg Patient transported to [facility] via private vehicle for further care and evaluation of the aforementioned symptoms. The patient was seen and evaluated in the emergency department. All lab and imaging studies reviewed. Patient placed in observation status and admitted to telemetry. Patient denies fever, chills, chest pain, palpitation, productive cough, skin rash, recent ill contacts, known exposure to COVID-19. Teleneurology consulted in ED. Neurology team consulted as well. No prior admi ssion for review. All medication listed at time of admission has been reconciled. Advanced care planning conducted in ED. In ER CT brain and CTA brain and neck are unremarkable. According to pt. she take Plaquenil for over 20 years last eye evaluation was done last month , she average twice a year eye exam . Past History Past Medical History: anemia, arthritis, other (See HPI) Past Surgical History: hysterectomy, Other (Rotator cuff surgery, dilatation and curettage) Social history: , lives with family. denies: smoking, alcohol abuse Family history: hypertension, other (Peripheral vascular disease) Medications and Allergies Allergies Allergy/AdvReac Type Severity Reaction Status Date / Time Sulfa (Sulfonamide Allergy Rash Verified 03/10/13 13:46 Antibiotics) Home Medications Medication Instructions Recorded Confirmed Last Taken Type Hydroxychloroquine [Plaquenil] 200 mg PO BID 01/16/21 01/16/21 Unknown History Meloxicam [Mobic] 15 mg PO QDAY 01/16/21 01/16/21 Unknown History Potassium Chloride [Klor-Con] 20 meq PO QDAY 01/16/21 01/16/21 Unknown History Active Meds: Active Medications Acetaminophen (Acetaminophen 325 Mg Tab) 650 mg PO Q4H PRN PRN Reason: Pain, Mild (1-3) Aspirin (Aspirin 325 Mg Tab) 325 mg PO QDAY ANGELICA Atorvastatin Calcium (Atorvastatin 40 Mg Tab) 40 mg PO QHS ANGELICA Bisacodyl (Bisacodyl 10 Mg Rect Supp) 10 mg [place] QDAY PRN PRN Reason: Constipation Hydromorphone HCl (Hydromorphone 1 Mg/1 Ml Inj) 0.5 mg IV Q12H PRN PRN Reason: Pain , Severe (7-10) Magnesium Hydroxide (Magnesium Hydroxide (Mom) Oral Liqd Udc) 30 ml PO Q4H PRN PRN Reason: Constipation Metoclopramide HCl (Metoclopramide 10 Mg Tab) 10 mg PO Q6H PRN PRN Reason: Nausea And Vomiting Ondansetron HCl (Ondansetron 4 Mg/2 Ml Inj) 4 mg IV Q8H PRN PRN Reason: Nausea And Vomiting Oxycodone/Acetaminophen (Oxycodone /Acetaminophen 5-325mg Tab) 1 tab PO Q12H PRN PRN Reason: Pain, Moderate (4-6) Promethazine HCl (Promethazine 25 Mg Rect Supp) 25 mg [place] Q6H PRN PRN Reason: Nausea And Vomiting Sodium Chloride (Sodium Chloride 0.9% 10 Ml Flush Syringe) 10 ml IV PRN PRN PRN Reason: LINE FLUSH Review of Systems Constitutional: no weight loss, no weight gain, no fever, no chills Ears, nose, mouth and throat: vertigo, no ear pain, no ear discharge, no decreased hearing, no nose pain, no nasal congestion Breasts: no change in shape, no swelling, no mass Cardiovascular: no chest pain, no rapid/irregular heart beat, no edema Respiratory: no cough, no cough with sputum, no hemoptysis, no shortness of breath Gastrointestinal: no abdominal pain, no nausea, no diarrhea, no constipation Genitourinary Female: no pelvic pain, no menorrhagia, no dysuria, no urinary frequency, no urgency Rectal: no pain, no incontinence, no bleeding Musculoskeletal: no neck stiffness, no shooting arm pain, no low back pain Integumentary: no rash, no pruritis, no sores, no jaundice Neurological: weakness, vertigo, gait dysfunction, loss of vision, no head injury, no paralysis, no numbness, no tingling, no seizures Psychiatric: no anxiety, no memory loss, no change in sleep habits, no insomnia, no change in appetite, no change in libido, no suicidal ideation Endocrine: no cold intolerance, no polyphagia, no excessive thirst, no polyuria Hematologic/Lymphatic: no easy bruising, no easy bleeding Allergic/Immunologic: no urticaria, no allergic rhinitis, no wheezing Past History Past Medical History: anemia, arthritis, other (See HPI) Past Surgical History: hysterectomy, Other (Rotator cuff surgery, dilatation and curettage) Social history: , lives with family. denies: smoking, alcohol abuse Family history: hypertension, other (Peripheral vascular disease) Medications and Allergies Allergies Allergy/AdvReac Type Severity Reaction Status Date / Time Sulfa (Sulfonamide Allergy Rash Verified 03/10/13 13:46 Antibiotics) Home Medications Medication Instructions Recorded Confirmed Last Taken Type Hydroxychloroquine [Plaquenil] 200 mg PO BID 01/16/21 01/16/21 Unknown History Meloxicam [Mobic] 15 mg PO QDAY 01/16/21 01/16/21 Unknown History Potassium Chloride [Klor-Con] 20 meq PO QDAY 01/16/21 01/16/21 Unknown History Active Meds: Active Medications Acetaminophen (Acetaminophen 325 Mg Tab) 650 mg PO Q4H PRN PRN Reason: Pain, Mild (1-3) Aspirin (Aspirin 325 Mg Tab) 325 mg PO QDAY COUNTS INCLUDE 234 BEDS AT THE [facility] Atorvastatin Calcium (Atorvastatin 40 Mg Tab) 40 mg PO QHS COUNTS INCLUDE 234 BEDS AT THE [facility] Last Admin: 01/16/21 21:11 Dose: 40 mg Documented by: Bisacodyl (Bisacodyl 10 Mg Rect Supp) 10 mg [place] QDAY PRN PRN Reason: Constipation Clopidogrel Bisulfate (Clopidogrel 75 Mg Tab) 75 mg PO QDAY COUNTS INCLUDE 234 BEDS AT THE [facility] Hydromorphone HCl (Hydromorphone 1 Mg/1 Ml Inj) 0.5 mg IV Q12H PRN PRN Reason: Pain , Severe (7-10) Magnesium Hydroxide (Magnesium Hydroxide (Mom) Oral Liqd Udc) 30 ml PO Q4H PRN PRN Reason: Constipation Metoclopramide HCl (Metoclopramide 10 Mg Tab) 10 mg PO Q6H PRN PRN Reason: Nausea And Vomiting Ondansetron HCl (Ondansetron 4 Mg/2 Ml Inj) 4 mg IV Q8H PRN PRN Reason: Nausea And Vomiting Oxycodone/Acetaminophen (Oxycodone /Acetaminophen 5-325mg Tab) 1 tab PO Q12H PRN PRN Reason: Pain, Moderate (4-6) Promethazine HCl (Promethazine 25 Mg Rect Supp) 25 mg FL Q6H PRN PRN Reason: Nausea And Vomiting Sodium Chloride (Sodium Chloride 0.9% 10 Ml Flush Syringe) 10 ml IV PRN PRN PRN Reason: LINE FLUSH Last Admin: 01/16/21 21:16 Dose: 10 ml Documented by: Physical Examination - Vital Signs Vital Signs: Vital Signs Temp Pulse Resp BP Pulse Ox 98.2 F 68 18 146/77 100 01/16/21 11:55 01/16/21 11:55 01/16/21 11:55 01/16/21 11:55 01/16/21 11:55 - Constitutional General appearance: comfortable - EENT EENT: Present: PERRL, mucous membranes moist - Respiratory Respiratory: Present: chest non-tender, lungs clear, rhonchi - Cardiovascular Cardiovascular: Present: regular rate, normal S1, normal S2 Extremities: Present: no peripheral edema bilatateraly, no clubbing, cyanosis, no inflammation - Gastrointestinal Gastrointestinal: Present: normoactive bowel sounds - Integumentary Integumentary: Present: normal - Neurologic Cranial nerve examination: PERRL, EOMI, VFF, intact Speech examination: intact Sensorimotor examination: intact Detailed motor examination: grossly full strength in - Level of Consciousness 1a. Level of Consciousness: alert/keenly responsive - LOC Questions 1b. LOC Questions: answers both correctly - LOC Command 1c. LOC Commands: performs tasks correctly - Best Gaze 2. Best Gaze: normal - Visual 3. Visual: no visual loss - Facial Palsy 4. Facial Palsy: normal symmetrical movement - Motor Arm 5a. Motor Arm Left: no drift 5b. Motor Arm Right: no drift - Motor Leg 6a. Motor Leg Left: no drift 6b. Motor Leg Right: no drift - Limb Ataxia 7. Limb Ataxia: absent - Sensory 8. Sensory: normal - Best Language 9. Best Language: no aphasia - Dysarthria 10. Dysarthria: normal Results - Laboratory Findings CBC and BMP: 01/16/21 12:43 08/06/21 12:43 Abnormal Lab Findings: Abnormal Labs 01/16/21 01/16/21 01/16/21 12:40 12:43 12:43 WBC 3.8 L RBC 3.64 L Plt Count 120 L [place] % (Auto) 11.0 H Lymph # (Auto) 1.1 L APTT 49.0 H POC Glucose 61 L Total Creatine Kinase 01/16/21 12:43 WBC RBC Plt Count [place] % (Auto) Lymph # (Auto) APTT POC Glucose Total Creatine Kinase 142 H Assessment and Plan Assessment and Plan - Patient Problems # Episodes of intermittent visual impairment left eye and right side numbness/weakness last few seconds for the last 3 months -Unlikley to be CVA in nature -CT brain and CTA brain and neck are unrevealing -started on ASA ,Plavix and Lipitor -Suggest MRI brain -ESR,BREE -Lipid profil - echocardiogram, - telemetry - -Pt therapy consulted, speech therapy consulted, # Hx of [id number] years -Continue current therapy, outpatient rheumatology follow-up. # Fibromyalgia -Continue prehospital medication, - supportive care, -outpatient rheumatology follow-up. # DVT prophylaxis -SCD to bilateral lower extremities while in bed, patient is ambulatory # Advance care planning -Disease education conducted, care plan discussed, diagnoses discussed, prognosis discussed, patient knowledges understanding and agreement with care plan, +30 minutes. Findings D/W pt.
--- NOTE | 2021-01-17 10:26 | Progress Note ---
Assessment and Plan Assessment and plan: (1) CVA (cerebral vascular accident) Current Visit: Yes Status: Acute Plan to address problem: CVA protocol: CT head, neuro check, seizure precautions, aspiration precautions, fall precautions, carotid Doppler reviewed, echocardiogram, dual antiplatelet therapy, lipid panel, statin therapy, telemetry neurology consulted, neurology team consulted, physical therapy consulted, Occupational Therapy consulted, speech therapy consulted, further testing as per neurology team recommendations. Patient complains episodes of intermittent left eye visual impairment and brief. Soft right-sided numbness and weakness Intermittently which lasts for few seconds, started about 3 months ago Neuro work-up so far MRI; no acute abnormality CT head; no acute intracranial findings stable lucency within the clivus without new or increasing cortical destruction findings related to demineralization CTA head; no significant abnormality in the CT of the head CTA neck; no significant abnormality esophageal dilation lower neck and upper middle mediastinum incidental finding. Echo; normal EF 55 to 60% Neurology evaluation and recommendation noted and appreciated (2) history of Lupus Current Visit: Yes Status: Acute Plan to address problem: Continue current therapy, outpatient rheumatology follow-up. (3) Fibromyalgia Current Visit: Yes Status: Acute Plan to address problem: Continue prehospital medication, supportive care, outpatient rheumatology follow-up. (4) DVT prophylaxis Current Visit: Yes Status: Acute Plan to address problem: SCD to bilateral lower extremities while in bed, patient is ambulatory (5) Advance care planning Current Visit: Yes Status: Acute Plan to address problem: Disease education conducted, care plan discussed, diagnoses discussed, prognosis discussed, patient knowledges understanding and agreement with care plan, +30 minutes. 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 upon discharge History Interval history: I have seen and examined the patient at the bedside Patient's chart and medications reviewed Patient is admitted with generalized weakness and dizziness Neurology evaluated had extensive neuro work-up is in progress Patient feels slightly better still has some dizziness Vital signs noted Hospitalist Physical - Constitutional Vitals: Temp Pulse Resp BP Pulse Ox 98.4 F 75 16 128/59 99 01/16/21 22:50 01/16/21 22:50 01/16/21 22:50 01/16/21 22:50 01/17/21 08:16 General appearance: Present: no acute distress, well-nourished - EENT Eyes: Present: PERRL, EOM intact - Neck Neck: Present: supple, normal ROM - Respiratory Respiratory effort: normal Respiratory: bilateral: diminished, negative: rales, rhonchi, wheezing - Cardiovascular Rhythm: regular Heart Sounds: Present: S1 & S2 - Extremities Extremities: no ischemia, No edema - Abdominal General gastrointestinal: soft, non-tender, non-distended, normal bowel sounds - Integumentary Integumentary: Present: clear, warm - Psychiatric Psychiatric: appropriate mood/affect, cooperative - Neurologic Neurologic: moves all extremities HEART Score - HEART Score Troponin: Troponin T < 0.010 ng/mL (0.00-0.029) 01/16/21 12:43 Results - Labs CBC & Chem 7: 01/16/21 12:43 01/16/21 12:43 Labs: Laboratory Last Values WBC 3.8 K/mm3 (4.5-11.0) L 01/16/21 12:43 RBC 3.64 M/mm3 (3.65-5.03) L 01/16/21 12:43 Hgb 10.6 gm/dl (10.1-14.3) 01/16/21 12:43 Hct 31.0 % (30.3-42.9) 01/16/21 12:43 MCV 85 fl (79-97) 01/16/21 12:43 MCH 29 pg (28-32) 01/16/21 12:43 MCHC 34 % (30-34) 01/16/21 12:43 RDW 14.3 % (13.2-15.2) 01/16/21 12:43 Plt Count 120 K/mm3 (140-440) L 01/16/21 12:43 Lymph % (Auto) 28.2 % (13.4-35.0) 01/16/21 12:43 [place] % (Auto) 11.0 % (0.0-7.3) H 01/16/21 12:43 Eos % (Auto) 2.6 % (0.0-4.3) 01/16/21 12:43 Baso % (Auto) 0.6 % (0.0-1.8) 01/16/21 12:43 Lymph # (Auto) 1.1 K/mm3 (1.2-5.4) L 01/16/21 12:43 [place] # (Auto) 0.4 K/mm3 (0.0-0.8) 01/16/21 12:43 Eos # (Auto) 0.1 K/mm3 (0.0-0.4) 01/16/21 12:43 Baso # (Auto) 0.0 K/mm3 (0.0-0.1) 01/16/21 12:43 Seg Neutrophils % 57.6 % (40.0-70.0) 01/16/21 12:43 Seg Neutrophils # 2.2 K/mm3 (1.8-7.7) 01/16/21 12:43 PT 14.7 Sec. (12.2-14.9) 01/16/21 12:43 INR 1.10 (0.87-1.13) 01/16/21 12:43 APTT 49.0 Sec. (24.2-36.6) H 01/16/21 12:43 Thrombin Time 18.8 Sec. (15.1-19.6) 01/16/21 12:43 Sodium 138 mmol/L (137-145) 01/16/21 12:43 Potassium 3.6 mmol/L (3.6-5.0) 01/16/21 12:43 Chloride 100.7 mmol/L (98-107) 01/16/21 12:43 Carbon Dioxide 28 mmol/L (22-30) 01/16/21 12:43 Anion Gap 13 mmol/L 01/16/21 12:43 BUN 14 mg/dL (7-17) 01/16/21 12:43 Creatinine 0.8 mg/dL (0.6-1.2) 01/16/21 12:43 Estimated GFR > 60 ml/min 01/16/21 12:43 BUN/Creatinine Ratio 18 % 01/16/21 12:43 Glucose 78 mg/dL (65-100) 01/16/21 12:43 POC Glucose 61 mg/dL (70-105) L 01/16/21 12:40 Calcium 9.0 mg/dL (8.4-10.2) 01/16/21 12:43 Total Bilirubin 0.50 mg/dL (0.1-1.2) 01/16/21 12:43 AST 21 units/L (5-40) 01/16/21 12:43 ALT 9 units/L (7-56) 01/16/21 12:43 Alkaline Phosphatase 62 units/L (35-129) 01/16/21 12:43 Total Creatine Kinase 142 units/L (30-135) H 01/16/21 12:43 CK-MB (CK-2) 2.4 ng/mL (0.0-4.0) 01/16/21 12:43 CK-MB (CK-2) Rel Index 1.6 (0-4) 01/16/21 12:43 Troponin T < 0.010 ng/mL (0.00-0.029) 01/16/21 12:43 Total Protein 8.2 g/dL (6.3-8.2) 01/16/21 12:43 Albumin 3.9 g/dL (3.9-5) 01/16/21 12:43 Albumin/Globulin Ratio 0.9 % 01/16/21 12:43 [place]/IV: Voiding Method Toilet Active Medications - Current Medications Current Medications: Generic Name Dose Route Start Last Admin Trade Name Freq PRN Reason Stop Dose Admin Acetaminophen 650 mg 01/16/21 14:43 Acetaminophen 325 Mg Tab PO Q4H PRN Pain, Mild (1-3) Aspirin 325 mg 01/17/21 10:00 Aspirin 325 Mg Tab PO QDAY [facility] Atorvastatin Calcium 40 mg 01/16/21 22:00 01/16/21 21:11 Atorvastatin 40 Mg Tab PO 40 mg QHS [facility] Administration Bisacodyl 10 mg 01/16/21 14:43 Bisacodyl 10 Mg Rect Supp [place] QDAY PRN Constipation Clopidogrel Bisulfate 75 mg 01/17/21 10:00 Clopidogrel 75 Mg Tab PO QDAY [facility] Hydromorphone HCl 0.5 mg 01/16/21 14:43 Hydromorphone 1 Mg/1 Ml Inj IV Q12H PRN Pain , Severe (7-10) Magnesium Hydroxide 30 ml 01/16/21 14:43 Magnesium Hydroxide (Mom) Oral Liqd Udc PO Q4H PRN Constipation Metoclopramide HCl 10 mg 01/16/21 14:43 Metoclopramide 10 Mg Tab PO Q6H PRN Nausea And Vomiting Ondansetron HCl 4 mg 01/16/21 14:43 Ondansetron 4 Mg/2 Ml Inj IV Q8H PRN Nausea And Vomiting Oxycodone/Acetaminophen 1 tab 01/16/21 14:43 Oxycodone /Acetaminophen 5-325mg Tab PO Q12H PRN Pain, Moderate (4-6) Promethazine HCl 25 mg 01/16/21 14:43 Promethazine 25 Mg Rect Supp [place] Q6H PRN Nausea And Vomiting Sodium Chloride 10 ml 01/16/21 14:43 01/16/21 21:16 Sodium Chloride 0.9% 10 Ml Flush Syringe IV 10 ml PRN PRN Administration LINE FLUSH
[2021-01-17] MEDS: CLOPIDOGREL 75 MG TAB PO SCH (10:40)
[2021-01-17] MEDS: ASPIRIN 325 MG TAB PO SCH (10:40)
--- NOTE | 2021-01-17 14:32 | Magnetic Resonance Report ---
MR brain wo/w con INDICATION / CLINICAL INFORMATION: 65 years Female; recurrent weakness and confusion ,hx of LUPUS. TECHNIQUE: Multiplanar, multisequence MR images of the brain were obtained. COMPARISON: CT-01/16/2021 FINDINGS: BRAIN / INTRACRANIAL CONTENTS: No acute hemorrhage, mass effect, midline shift, hydrocephalus, or acu te, large territorial infarct. Mild, diffuse cerebral atrophy. There are mild areas of increased signal intensity on FLAIR imaging in the white matter of the cerebr al hemispheres. These are nonspecific findings and may be related to microangiopathy (hypertension, d iabetes, atherosclerosis), given the patient's age. I see no signs of abnormal enhancement following contrast administration. CRANIOCERVICAL JUNCTION: No significant abnormality. VASCULAR FLOW-VOIDS: No significant abnormality. ORBITS: No significant abnormality of visualized orbits. SINUSES / MASTOIDS: Mucous tension cyst/polyp is seen in the left maxillary antrum. ADDITIONAL FINDINGS: None. IMPRESSION: 1. No focal mass, hemorrhage, hydrocephalus, or acute ischemia. Signer Name: Zia Roberts MD, III Signed: 01/17/2021 2:27 PM Workstation Name: [id number]
[2021-01-18 05:36] VITALS: BP 102/54
[2021-01-18] MEDS: CLOPIDOGREL 75 MG TAB PO SCH (10:55)
[2021-01-18] MEDS: ASPIRIN 325 MG TAB PO SCH (10:55)
--- NOTE | 2021-01-18 11:08 | Progress Note ---
Assessment and Plan Assessment and Plan - Patient Problems # Episodes of intermittent visual impairment left eye and right side numbness/weakness last few seconds for the last 3 months -Unlikley to be CVA in nature -CT brain and CTA brain and neck are unrevealing -started on ASA ,Plavix and Lipitor - MRI brain is unremarkable -ESR#60 ,BREE is pending -Lipid profil-LDL in 2020 is #120 - echocardiogram is pending - telemetry - # Hx of [id number] years -Continue current therapy, outpatient rheumatology follow-up. -ESR#60 -BREE is pending # vertigo -Benign intermittent - respond to scopolamin patch # Fibromyalgia -Continue prehospital medication, - supportive care, -outpatient rheumatology follow-up. # DVT prophylaxis -SCD to bilateral lower extremities while in bed, patient is ambulatory # Advance care planning -Disease education conducted, care plan discussed, diagnoses discussed, prognosis discussed, patient knowledges understanding and agreement with care plan, +30 minutes. PLAN 1-ASA 81 mg daily 2- Stop Plavix 3- maintain on Lipitor 40 mg daily 4- Scopolamin patch prn 5-follow up with Rheumatology and PCP will sign off Subjective Date of service: 01/18/21 Principal diagnosis: weakness and or vertigo X3 weeks Interval history: feeling better today except for intermittent vertigo when turn to right side according to her she was on antivert and now on scopolamin patch Q3 days PRN MRI brain is unremarkable last LDL was last year #120 Objective - Vital Sign Vital Signs - 12hr 01/18/21 04:48 Temperature 98.4 F Pulse Rate 67 Respiratory 18 Rate Blood Pressure 102/54 O2 Sat by Pulse 100 Oximetry - General Apperance Constitutional: comfortable - EENT EENT: PERRL, mucous membranes moist - Respiratory Respiratory: chest non-tender, lungs clear, rhonchi - Cardiovascular Cardiovascular: regular rate, normal S1, normal S2 Extremities: no peripheral edema bilat, no clubbing, cyanosis - Gastrointestinal Gastrointestinal: normoactive bowel sounds - Integumentary Integumentary: normal - Neurologic Cranial nerve examination: PERRL, EOMI, intact (no vertigo /nystagmus is noted , no weakness ) - Laboratory Findings CBC and BMP: 01/16/21 12:43 01/16/21 12:43 Abnormal Lab Findings: Abnormal Labs 01/16/21 01/16/21 01/16/21 12:40 12:43 12:43 WBC 3.8 L RBC 3.64 L Plt Count 120 L [place] % (Auto) 11.0 H Lymph # (Auto) 1.1 L APTT 49.0 H POC Glucose 61 L Total Creatine Kinase 01/16/21 12:43 WBC RBC Plt Count [place] % (Auto) Lymph # (Auto) APTT POC Glucose Total Creatine Kinase 142 H
--- NOTE | 2021-01-18 12:12 | Discharge Summary ---
Providers - Providers Date of Admission: 01/16/21 14:43 Date of discharge: 01/18/21 Attending physician: STACEY LUDWIG 01/16/21 Consult to Physician [CONS] Routine Comment: Consulting Provider: JOSE BAJWA Physician Instructions: Reason For Exam: cva 01/16/21 14:43 Occupational Therapy Evaluate and Treat [CONS] Routine Comment: Reason For Exam: Neuro deficits Physical Therapy Evaluation and Treat [CONS] Routine Comment: Reason For Exam: Neuro deficits 01/16/21 14:44 Speech Therapy Evaluation and Treat [CONS] Routine Reason For Exam: swallow eval Primary care physician: KATHI REY Hospitalization Condition: Stable Hospital course: Episode of transient intermittent visual impairment Transient/right-sided numbness and weakness; Neuro work-up is negative Acute CVA ruled out --History of lupus more than 20 years --Fibromyalgia --Intermittent vertigo Disposition: DC-01 TO HOME OR SELFCARE Final Discharge Diagnosis (Prints w/discharge instructions): Transient intermittent visual impairment[improved]. Transient right-sided numbness and weakness[work-up negative acute CVA ruled out]. Acute CVA ruled out. History of lupus. History of fibromyalgia. Intermittent vertigo Time spent for discharge: 35 min Core Measure Documentation - Palliative Care Palliative Care/ Comfort Measures: Not Applicable - Core Measures Any of the following diagnoses?: none Exam - Constitutional Vitals: Temp Pulse Resp BP Pulse Ox 98.4 F 67 18 102/54 100 01/18/21 04:48 01/18/21 04:48 01/18/21 04:48 01/18/21 04:48 01/18/21 04:48 General appearance: Present: no acute distress, well-nourished - EENT Eyes: Present: PERRL, EOM intact - Neck Neck: Present: supple, normal ROM - Respiratory Respiratory effort: normal Respiratory: bilateral: diminished, negative: rales, rhonchi, wheezing - Cardiovascular Rhythm: regular Heart Sounds: Present: S1 & S2 - Extremities Extremities: no ischemia, No edema - Abdominal General gastrointestinal: Present: soft, non-tender, non-distended, normal bowel sounds - Integumentary Integumentary: Present: clear, warm - Musculoskeletal Musculoskeletal: strength equal bilaterally - Psychiatric Psychiatric: appropriate mood/affect, cooperative - Neurologic Neurologic: moves all extremities Plan Activity: advance as tolerated, fall precautions Diet: other (Cardiac diet) Additional Instructions: Fall precautions . 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 Advised to follow private neurologist if symptoms persist. 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 Advised to see ENT for further evaluation and management of vertigo. If you have worsening symptoms, contact MD or go to the nearest emergency room as needed. Advised 3 days work excuse from 01/19/2021 till 01/21/2021, may return to work on 01/23/2024 Follow up with: KATHI REY MD [Primary Care Provider] - 7 Days Prescriptions: Aspirin EC [Halfprin EC] 81 mg PO QDAY #30 tablet. Scopolamine [Transderm-Scop] 1 each TD Q3D PRN #15 patch PRN Reason: Vertigo
--- NOTE | 2021-01-18 13:34 | Electrocardiograph Report ---
[facility] Test Date: 2021-01-17 Test Time: 08:31:22 Pat Name: ERIC VU Department: Room: A462 1 Gender: F [employer] Person: ANDREW : 1955 Requested By: FRIEDA HARRIS Order Number: [id number] Reading MD: Radha Paulson Measurements Intervals [place] Rate: 63 P: 42 [place]: 132 QRS: -12 QRSD: 83 T: -41 QT: 456 QTc: 466 Interpretive Statements Sinus rhythm Consider left ventricle hypertrophy Borderline T abnormalities, diffuse leads No previous ECG available for comparison Electronically Signed On 01-18-2021 13:34:31 EDT by Radha Paulson
[2021-01-21 12:16] LABS: ANA Screen, IFA Positive (Negative)
== END 2021-01-18 14:15 | disposition home or self-care (01) ==
LOC: ED 11:13 → MRI 11:13 → EDSTATUS 11:48 → 4A 14:43
PROVIDERS: ADMIT Internal Medicine; ATTEND Internal Medicine
DX: I63.9 Cerebral infarction, unspecified (principal); G45.9 Transient cerebral ischemic attack, unspecified; M32.9 Systemic lupus erythematosus, unspecified; M79.7 Fibromyalgia; D64.9 Anemia, unspecified; M19.90 Unspecified osteoarthritis, unspecified site; R29.703 NIHSS score 3; Z90.710 Acquired absence of both cervix and uterus; Z79.899 Other long term (current) drug therapy; Z79.82 Long term (current) use of aspirin
CPT/HCPCS: 36415; 70450; 70496; 70498; 70553; 80053; 82550; 82553; 82962; 84484; 85025; 85610; 85652; 85670; 85730; 86038; 92610; 93005; 93306; 97163; 99285; A9270; A9575; G0378; Q9967

== ENCOUNTER 2021-02-18 15:53 | Outpatient (CLI) | payer BC ==
[2021-02-18 16:56] LABS: Hematocrit 33.5 % (30.3-42.9); Hemoglobin 11.3 gm/dl (10.1-14.3); Mean Corpuscular HGB Conc 34 % (30-34); Mean Corpuscular Volume 86 fl (79-97); Platelet Count 115 K/mm3 (140-440); Red Blood Count 3.92 M/mm3 (3.65-5.03); Red Cell Distribution Width 14.6 % (13.2-15.2)
[2021-02-18 17:15] LABS: Alanine Aminotransferase 9 units/L (7-56); Albumin 3.9 g/dL (3.9-5); BUN/Creatinine Ratio 17; Blood Urea Nitrogen 17 mg/dL (7-17); Calcium 9.2 mg/dL (8.4-10.2); Chol/HDL Ratio 3.07 %; HDL Cholesterol 53 mg/dL (40-59); Hemolysis Index 4; LDL Cholesterol,Direct 105 mg/dL (50-130)
[2021-02-21 11:46] LABS: ANA Screen, IFA Positive (Negative)
[2021-02-21 13:41] LABS: Cardiolipin Ab IgA >65.0 APL-U/mL (<20.0); Cardiolipin Ab IgG >112.0 GPL-U/mL (<20.0); Cardiolipin Ab IgM <2.0 MPL-U/mL (<20.0)
== END 2021-02-18 15:54 | disposition home or self-care (01) ==
LOC: LAB 15:53
PROVIDERS: ATTEND Internal Medicine Rheumatology
DX: M32.10 Systemic lupus erythematosus, organ or system involvement unspecified (principal); M06.4 Inflammatory polyarthropathy
CPT/HCPCS: 36415; 80053; 80061; 82085; 82550; 83036; 85027; 85613; 86038; 86147; 86160; 86225

== ENCOUNTER 2021-04-06 13:17 | Outpatient (CLI) | payer BC ==
[2021-04-06 15:59] LABS: Basophils % (Auto) 0.8 % (0.0-1.8); Eosinophils # (Auto) 0.1 K/mm3 (0.0-0.4); Eosinophils % (Auto) 2.1 % (0.0-4.3); Hematocrit 30.1 % (30.3-42.9); Hemoglobin 9.9 gm/dl (10.1-14.3); Lymphocytes # (Auto) 0.8 K/mm3 (1.2-5.4); Lymphocytes % (Auto) 14.1 % (13.4-35.0); Mean Corpuscular HGB Conc 33 % (30-34); Mean Corpuscular Volume 86 fl (79-97); Monocytes # (Auto) 0.5 K/mm3 (0.0-0.8); Monocytes % (Auto) 7.8 % (0.0-7.3); Platelet Count 164 K/mm3 (140-440); Red Blood Count 3.52 M/mm3 (3.65-5.03); Red Cell Distribution Width 15.8 % (13.2-15.2)
== END 2021-04-06 13:18 | disposition home or self-care (01) ==
LOC: LAB 13:17
PROVIDERS: ATTEND Internal Medicine
DX: D69.6 Thrombocytopenia, unspecified (principal)
CPT/HCPCS: 36415; 85025

== ENCOUNTER 2021-05-11 11:30 | Outpatient (CLI) | payer BC ==
[2021-05-11 12:04] LABS: Hematocrit 31.6 % (30.3-42.9); Hemoglobin 10.1 gm/dl (10.1-14.3); Mean Corpuscular HGB Conc 32 % (30-34); Mean Corpuscular Volume 87 fl (79-97); Platelet Count 190 K/mm3 (140-440); Red Blood Count 3.64 M/mm3 (3.65-5.03); Red Cell Distribution Width 15.3 % (13.2-15.2)
[2021-05-11 12:44] LABS: Alanine Aminotransferase 9 units/L (7-56); Albumin 3.8 g/dL (3.9-5); BUN/Creatinine Ratio 16; Blood Urea Nitrogen 16 mg/dL (7-17); Calcium 8.5 mg/dL (8.4-10.2); Hemolysis Index 2; Iron 50 ug/dL (37-170)
== END 2021-05-11 11:31 | disposition home or self-care (01) ==
LOC: LAB 11:30
PROVIDERS: ATTEND Internal Medicine Rheumatology
DX: D64.9 Anemia, unspecified (principal)
CPT/HCPCS: 36415; 80053; 82607; 82728; 82747; 83540; 85027

== ENCOUNTER 2021-12-28 10:42 | Outpatient (CLI) | payer BC ==
[2021-12-28 12:21] LABS: Bilirubin,Urine NEG (Negative); Blood,Urine NEG (Negative); Color,Urine Yellow (Yellow); Protein,Urine <15 mg/dL mg/dL (Negative); Urobilinogen,Urine < 2.0 mg/dL (<2.0)
[2021-12-28 12:23] LABS: Mucus,Urine FEW /HPF
[2021-12-28 12:35] LABS: Basophils % (Auto) 0.8 % (0.0-1.8); Eosinophils # (Auto) 0.1 K/mm3 (0.0-0.4); Eosinophils % (Auto) 3.1 % (0.0-4.3); Hematocrit 30.8 % (30.3-42.9); Hemoglobin 10.2 gm/dl (10.1-14.3); Lymphocytes # (Auto) 1.3 K/mm3 (1.2-5.4); Lymphocytes % (Auto) 30.3 % (13.4-35.0); Mean Corpuscular HGB Conc 33 % (30-34); Mean Corpuscular Volume 86 fl (79-97); Monocytes # (Auto) 0.5 K/mm3 (0.0-0.8); Monocytes % (Auto) 11.7 % (0.0-7.3); Platelet Count 137 K/mm3 (140-440); Red Cell Distribution Width 14.4 % (13.2-15.2)
[2021-12-28 12:44] LABS: Alanine Aminotransferase 10 units/L (7-56); Albumin 4.3 g/dL (3.9-5); BUN/Creatinine Ratio 19; Blood Urea Nitrogen 17 mg/dL (7-17); Calcium 8.9 mg/dL (8.4-10.2); Chol/HDL Ratio 2.32 %; HDL Cholesterol 76 mg/dL (40-59); Hemolysis Index 0; LDL Cholesterol,Direct 101 mg/dL (50-130)
[2021-12-28 13:05] LABS: Erythrocyte Sedimentation Rate 4 mm/Hr (0-20)
== END 2021-12-28 10:43 | disposition home or self-care (01) ==
LOC: LABHHL 10:42
PROVIDERS: ATTEND Internal Medicine
DX: Z00.00 Encounter for general adult medical examination without abnormal findings (principal); E78.9 Disorder of lipoprotein metabolism, unspecified; R73.9 Hyperglycemia, unspecified; R53.83 Other fatigue; M32.9 Systemic lupus erythematosus, unspecified
CPT/HCPCS: 36415; 80053; 80061; 81001; 82306; 82607; 83036; 84443; 85025; 85652; 86140; 86160